=== PATIENT | female | born 1960 | race Caucasian/White ===

== ENCOUNTER 2016-09-13 06:48 | Day surgery (SDC) | payer OTHER ==
[2016-09-13] VITALS (8 sets, daily range): BP systolic 110–164; BP diastolic 61–95; PULSE 77–104; RESP 12–17; O2SAT 97–100
[~2016-09-13] VITALS: Ht 171.4 cm; Wt 57.4 kg
--- NOTE | 2016-09-13 06:41 | PCM.HPANE ---
Patient Data Surgeon Admitting Provider: Attending Provider:David Aldrich MD Primary Care Physician:Veena West Other Provider:Sonal Dukes Anesthesia Reason for Visit Right Distal Radius Fracture Ht/WT & BMI Height (Feet): 5 Height (Inches): 7 Weight (Kilograms): 58.967 Body Mass Index 20.00 Allergies Coded Allergies: hydrocodone (Verified Allergy, Severe, HIVES, 09/10/16) morphine (Verified Allergy, Unknown, UNKNOWN, 09/10/16) oxycodone (Verified Allergy, Unknown, UNKNOWN, 09/10/16) codeine (Verified Adverse Reaction, Severe, NAUSEA, 09/10/16) ketorolac (Verified Adverse Reaction, Severe, anxiety, "crawling inside", 09/13/16) Uncoded Allergies: SULFA (Adverse Reaction, Severe, N&V, 09/10/16) Past Anesthesia History Anesthesia History: Positive for:: Anesthesia Reactions (PONV), Denies:: Malignant Hyperthermia Diabetes History Hx Diabetes?: No MRSA MRSA: No Medications Hypertension Medication: Yes (LISINOPRIL) Reported Medications Ranitidine 150 Mg Drhxzdq129 Mg PO BID Ref 0 09/10/16 Fluticasone Propionate (Flonase Allergy Relief)50 Mcg/Actuation [place].susp9.9 Ml NS DAILY 09/10/16 Trazodone 50 Mg Ubrewt17 Mg PO TID Ref 0 07/02/16 Tramadol 50 Mg Enfjoq01 Mg PO Q4H PRN For Pain Ref 0 07/02/16 Lisinopril 2.5 Mg Tablet2.5 Mg PO DAILY 30 Days Ref 0 07/02/16 Discontinued Reported Medications Hydromorphone 2 Mg Tablet1 Mg PO Q4H PRN Pain Ref 0 09/10/16 Doxycycline Hyclate 50 Mg Tablet.dr50 Mg PO DAILY 09/10/16 [Clotrimazole] No Conflict Check10 Mg PO TID PRN PRN SALVATORE FOR 7 DAYS PRN 09/10/16 Clindamycin Phosphate (Cleocin T)60 Ml Lotion1 Applic TP DAILY 09/10/16 Dicloxacillin 250 Mg Ngycmwc226 Mg PO TID Ref 0 07/02/16 Methocarbamol 750 Mg Htgnxz525 Mg PO BID PRN For Spasm #45 07/06/16 Ibuprofen/Diphenhydramine Cit (Motrin Pm Caplet)1 Each Tablet1 Each PO prn 07/02/16 [Excedrin Migraine] No Conflict Check1 Tab PO DAILY PRN For Pain 07/02/16 History History of ENT Problems?: No Hx of Heart Problems?: Yes Cardiovascular History: Positive for:: Hypertension Denies:: Heart Murmur Hx of Respiratory Problem?: Yes Respiratory History: Denies:: Chest Surgery (HX OF SOLITARY PULMONARY NODULE) Use of C-PAP Machine Hx Neurologic Problems?: Yes Neurological History: Positive for:: Dizziness (HX OF) Headaches Other Neurological Pertinent: C/OF CHRONIC PAIN (BACK) Hx of GI Problems?: Yes Gastrointestinal History: Positive for:: Gastroesphageal Reflux Denies:: Hiatal Hernia Rectal Bleeding (HX OF COLON POLYP) Other GI Pertinent History: S/P HERNIA RPR Hx of Problems?: No Female Hx: Positive for:: Problems with Breasts? (S/P BREAST AUGMENTATION) Denies:: Currently (S/P MULT D&C'S) Skin History: Denies:: History Skin Disorders? Pressure Ulcers Hx Musculoskeletal Problems?: Yes Musculoskeletal History: Positive for:: Back Injury (HX OF BACK INJURY C/OF NECK PAIN) Hx of Psycho/Social Problems?: No Hx Surgeries?: Yes (HERNIA,HYST,LT CLAVICLE BICEPS,C3-4 DISC,MULT D&C'S,LT ACL/ MENISECTOMY,MALIK) Hx Any Other Health Problems?: Yes Other History: Denies:: Cancer Endocrine Disease (C/OF NIGHT SWEATS, HEAT & COLD INTOLERANCE) Hospitalization Thyroid Disease History Blood Transfusions: Denies:: Blood Transfusions Hx Diabetes: No Hx Alcohol Use: NoHx Substance Use: Yes Smoking Status: Never Smoker Have You Smoked inLast 12 mo: No Stop/Bang S-Snoring: Do You Snore Loudly: No T-Tired: feel tired, fatigued: No O-Obsered: Observed not breath: No P-Blood Pressure: treated: Yes B- Body Mass Index > 35 kg/m2: No A- Age over 50: Yes N- Neck Large Circumference: No G- Gender Male: No ROMI Total Score: 2 ROMI Risk Assessment: Low Risk, <3 Yes Risk Assessment Category Category 1A: Patient has history of documented sleep apnea, and HAS NOT received any narcotic, sedative or anesthesia administration during this stay. Category 1B: Patient has history of documented sleep apnea, and HAS received any narcotic , sedative or anesthesia administration during this stay Category 2: Patient has SUSPECTED Obstructive Sleep Apnea, and HAS received any narcotic , sedative or anesthesia administration during this stay. Category 3: Patient has SUSPECTED Obstructive Sleep Apnea and HAS NOT received narcotic, sedative or anesthesia administration during this stay. Category 4: Outpatient in Procedural Areas with known sleep apnea or who screen positive for High Risk via the STOP/BANG questionnaire. Exam Exam General Appearance: Alert, Oriented X3, Cooperative, No Acute Distress HEENT/AIRWAY: MP 2 Lungs: Clear to Auscultation, Normal Air Movement Heart: Exam Unremarkable, Regular Rate/Rhythm, No Murmurs/Rubs/Gallops Plan Impression Patient chart reviewed, patient interviewed and anesthestic plan with risks, benefits, and alternatives discussed, and informed consent obtained. NPO Status: 07/05/16 1700 ASA Physical Status: ASA2 Mod Systemic Disease Anesthetic Plan: GA Bene/Risks/Altern/Consents: Yes HP Complete Prior to Induction: Yes Other history of PONV without prophylaxis. No problems since Dex/Ond combination in hte last 10 years Neck fusion with pain, currently greater than her wrist. Chery Rider MD Sep 13, 2016 06:41
[~2016-09-13 06:48] MED LIST: CLIN60LO TP; CLOTRIMAZOLE PO; CeFAZolin Inj 2 GM in IV Premix 1 EACH IV ONE; DICL250C PO; DOXY50TA9 PO; FLUT9.9S NS; HYDR2TAB28 PO; LISI2.5T PO; Lactated Ringer's 1,000 ML IV ONE; RANI150C4 PO; TRAM50TA2 PO; TRAZ-115 PO
[2016-09-13] MEDS ORDERED: Ondansetron 2 mg/mL 2 mL Inj ONE (06:49)
[2016-09-13] MEDS ORDERED: Dexamethasone 4 mg/mL Inj ONE (06:49)
[2016-09-13] MEDS ORDERED: fentaNYL-PF 50 mCg/mL 2 mL Inj ONE (06:49)
[2016-09-13] MEDS ORDERED: Propofol 10,000 mCg/mL 20 mL Inj ONE (06:49)
[2016-09-13] MEDS ORDERED: Lactated Ringer's 500 ML IV PRN (08:55)
[2016-09-13] MEDS ORDERED: hydrALAZINE 20 mg/mL Inj IVPUSH PRN (08:55)
[2016-09-13] MEDS ORDERED: Lactated Ringer's 1,000 ML IV SCH (08:55)
[2016-09-13] MEDS ORDERED: Ondansetron 2 mg/mL 2 mL Inj IVPUSH PRN (08:55)
[2016-09-13] MEDS ORDERED: Labetalol 5 mg/mL 4 mL Inj IV PRN (08:55)
[2016-09-13] MEDS ORDERED: Atropine 0.4 mg/mL Inj IVPUSH PRN (08:55)
[2016-09-13] MEDS ORDERED: EPHEDrine Sulfate 50 mg/mL Inj IVPUSH PRN (08:55)
[2016-09-13] MEDS ORDERED: Dexamethasone 4 mg/mL Inj IVPUSH PRN (08:55)
[2016-09-13] MEDS ORDERED: Phenylephrine 10,000 mCg/mL Inj IVPUSH PRN (08:55)
[2016-09-13] MEDS ORDERED: MetoCLOpramide 5 mg/mL 2 mL Inj IVPUSH PRN (08:55)
[2016-09-13] MEDS ORDERED: Ropivacaine-PF 0.5% 30 mL Inj INJ ONE (08:59)
[2016-09-13] MEDS ORDERED: Bacitracin 50,000 unit Inj IRRIGATION ONE (09:06)
[2016-09-13] MEDS ORDERED: Ketorolac 15 mg/mL Inj IVPUSH ONE (09:50)
[2016-09-13] MEDS ORDERED: oxyCODONE-Acetamin 5-325 mg Tablet PO PRN (09:50)
--- NOTE | 2016-09-13 09:53 | PCM.ORTHOP ---
Orthopedic Operative Report Date of Service: Sep 13, 2016 Pre Operative Diagnosis Right distal radius fracture Post Operative Diagnosis Same Procedure Right distal radius open reduction internal fixation, intra-articular with 3 fragments Surgeon Surgeon: David Aldrich MD Assistants: Josselin Sawyer Indication for Procedure Right distal radius intra-articular fracture Findings Right distal radius intra-articular fracture with 3 fragments Details of Procedure Findings: comminuted intraarticular fracture of distal radius, fluoroscopic imaging after ORIF shows good alignment of distal radius and no hardware complications Specimens: None Patient Status: Patient was extubated and taken to recovery room in stable condition. Indications: Estrellita Collazo is a 56 year old female right hand dominant with right distal radius fracture after fall on outstretched hand. A clear explanation was given to the patient regarding the condition present, and the available conservative and surgical options. It was emphasized that the risks and benefits of surgery include but are not limited to infection, wound healing problems, damage to adjacent structures such as nerves, blood vessels and tendons, cotton inspector disability and pain, arthritis, hypersensitivity, deep vein thrombosis, pulmonary embolism, broken hardware, failure of surgery, need for further procedures at time of surgery or later, cast related problems, loss of limb or life. The patient was given an explanation and the patient voiced understanding of what to expect after the procedure or surgery, the limitations in activities of daily living, the likely duration for post operative recovery and the instructions that are to be followed. At the end the patient was invited to seek clarification or ask further questions but there were none. The patient voiced understanding of the entire consultation. Description of Procedure: Patient was taken to operating room and transferred to operating table in supine position. Time out was performed with both anesthesia and orthopaedics faculty present to confirm details of case to be performed. After time out performed, patient placed under general anesthesia and endotracheal tube secured into place. Once endotracheal tube secured, proximal arm tourniquet was placed over softroll and secured with tape. Patient position was again checked to ensure all bony prominences adequately padded. [ right/left] arm was prepped and draped in the usual sterile fashion to the level of the tourniquet. The right upper extremity was then exsanguinated with an esmark and the tourniquet was then inflated to 250 mmHG. Incision was made approximately 5 cm long over the course of the flexor carpi radialis (FCR) tendon. Hemostasis was controlled with electrocautery. The flexor carpi radialis tendon sheath was identified. The sheath was then entered with tenotomy scissors and released. The FCR tendon sheath was dissected distally to the level of the superficial radial artery. The FCR tendon was retracted towards the ulna to protect the median nerve. At this time the radial artery was identified and protected and retracted towards the radial side. Incision through the floor of the FCR sheath was performed. The pronator quadratus was identified and released by sharp dissection over the radial and distal edge by making a L incision. A periosteal elevator was used to elevate the pronator quadratus to expose the volar surface of the radius. The fracture site was identified and the distal fragment was released and freed up using a freer elevator. The extent of comminution was appreciated at this time. There was note comminution readily apparent with elevation of the distal fragment. The fracture site was debrided with a rongeur and curette. The fracture was reduced and secured with a K-wire. This was confirmed with fluoroscopy. Once the distal fragments were mobilized the fracture was then reduced by placing the Arthrex volar plate on the radial shaft and securing it distally with 2 K- wires through the plate. After verifying plate alignment and location of the wires close to subchondral bone, the distal row was fixed with smooth pegs. Then using a buttress effect the distal fragments were levered into a reduced position and secured with cortical shaft screws. Fluoroscopy confirmed acceptable reduction. Once the plate placement was appropriate the distal drill holes were drilled and filled with smooth peg locking screws. Proper plate alignment and screw placement was checked once more with fluoroscopy in both the AP and lateral views. Final plate position was confirmed with orthogonal views with fluoroscopy imaging that was saved in PACs. The DRUJ was noted to be stable while performing fluoroscopic exams. Wound was then thoroughly irrigated with NS. The pronator quadratus was reapproximated with 4-0 Vycril suture. Subcutaneous closure completed with 4-0 Vycril suture and skin closure with 3-0 Nylon suture. Sterile dressing was placed on the incision as well as the hand and forearm which was then wrapped with soft roll. A volar resting splint was applied to the [right/left] forearm and wrapped with Adalberto wraps. A shoulder sling was also placed for comfort. Patient was then awoken from anesthesia and extubated, his neurovascular status was intact when checked in PACU. Patient tolerated procedure well and there were no complications. I was present and scrubbed for the entire procedure. BLOCK SORTER SURGEON: During the operation, the services of physician nursing surgical services director were medically indicated and necessary to provide exposure of the operative site for the surgical procedure and to maintain the limb in a proper position to carry out the operation safely and efficiently. Without the qualified plumber's assistant being present, it would have extended the operative procedure and made the procedure technically more difficult to perform. Grafts, Implants: Implants-See Implant Record Complications There were no periprocedural complications identified. Condition Stable Anesthetic Administered: GA Catheters: None Output, Estimated Blood Loss: 5 Blood Admin during surgery: No Surgical Cast or Splint: Short Arm Splint Surgical Specimen Removed: No Specimen sent to Pathology: No copies to: David Aldrich MD, Christopher L MD Sep 13, 2016 09:53
[2016-09-13] MEDS: HYDROmorphone 1 mg/mL Inj IVPUSH PRN ×3 (10:10→11:09)
[2016-09-13] MEDS: fentaNYL-PF 50 mCg/mL 2 mL Inj IVPUSH PRN ×2 (10:10→10:15)
--- NOTE | 2016-09-13 11:13 | PCM.ANEP1 ---
Post Anesthesia Phase 1 PACU Phase 1 Assessment Date of Service: Sep 13, 2016 Vital Signs Vital Signs Date Time Temp Pulse Resp B/P Pulse Ox O2 Delivery O2 Flow Rate FiO2 09/13/16 10:36 87 16 164/73 99 Nasal Cannula 2 09/13/16 10:27 104 17 145/76 99 Nasal Cannula 2 09/13/16 10:03 36.0 77 15 156/90 98 Simple Mask 10 09/13/16 07:15 36.3 81 12 110/61 100 Room Air Anesthetic Administered: GA Level of Alertness: Awake, talking VILLALOBOS's with Equal Strength: Yes Pain: No Nausea or Vomiting: No Oxygen Delivery: Simple Mask Lungs: Clear to Auscultation, Normal Air Movement Chery Rider MD Sep 13, 2016 11:13
--- NOTE | 2016-09-13 11:46 | PCM.ANEP2 ---
Post Anesthesia Evaluation ASA/CMS Post Anesthesia VS in Patient's Normal Range?: Yes Resp Stable; Airway Patent?: Yes CV Function & Hydration Stable: Yes Mental Status Recovered?: Yes Pain control Satisfactory?: Yes N/V Control Satisfactory?: Yes Chery Rider MD Sep 13, 2016 11:46
== END 2016-09-13 23:59 | disposition home or self-care (01) ==
LOC: SAS 06:48
PROVIDERS: ATTEND Orthopaedic Surgery
DX: S52.531A Colles' fracture of right radius, initial encounter for closed fracture (principal); I10 Essential (primary) hypertension
CPT/HCPCS: 25609; 76000; C1713; J0690; J1100; J1170; J2175; J2250; J2405; J2795; J3010; J7120

== ENCOUNTER 2016-10-03 08:44 | Emergency (ER) | payer OTHER ==
[~2016-10-03] VITALS: Ht 171.4 cm; Wt 57.3 kg
[~2016-10-03 08:44] MED LIST changes: -CLIN60LO TP; -CLOTRIMAZOLE PO; -CeFAZolin Inj 2 GM in IV Premix 1 EACH IV ONE; -DICL250C PO; -DOXY50TA9 PO; -HYDR2TAB28 PO; -Lactated Ringer's 1,000 ML IV ONE
[2016-10-03 08:57] VITALS: BP 153/91; PULSE 85; RESP 22; O2SAT 100
--- NOTE | 2016-10-03 09:08 | ED.REPORT ---
HPI-Headache Date of Service Oct 03, 2016 ED Provider: Aravind Pruett MD Patient is a 56 year old female with a history of migraines who presents to the ED complaining of a headache onset 9 hours ago. Associated symptoms include nausea, vomiting, neck pain, and dizziness. She took two doses of "indosterone" but believes she vomited both up. She claims that she has a "disk replacement that slips out" causing her to throw up. She denies fever, numbness, focal weakness, chest pain, or any other symptoms. Family reports that this happens about once a month. At baseline she has tolerable pain but some days are worse than others. She takes 50 mg of tramadol a day for her pain. Patient is requesting narcotics. Nursing Notes Stated Complaint: VOMITING Chief Complaint: Headache Nursing Notes Reviewed: Yes Allergies: Coded Allergies: hydrocodone (Verified Allergy, Severe, HIVES, 09/10/16) morphine (Verified Allergy, Unknown, UNKNOWN, 09/10/16) oxycodone (Verified Allergy, Unknown, UNKNOWN, 09/10/16) codeine (Verified Adverse Reaction, Severe, NAUSEA, 09/10/16) ketorolac (Verified Adverse Reaction, Severe, anxiety, "crawling inside", 09/13/16) Uncoded Allergies: SULFA (Adverse Reaction, Severe, N&V, 09/10/16) Scheduled Fluticasone Propionate (Flonase Allergy Relief) 50 Mcg/Actuation [place].susp 9.9 ML NS DAILY Lisinopril (Lisinopril) 2.5 Mg Tablet 2.5 MG PO DAILY Ranitidine (Ranitidine) 150 Mg Capsule 150 MG PO BID Trazodone (Trazodone) 50 Mg Tablet 50 MG PO TID Scheduled PRN Tramadol (Tramadol) 50 Mg Tablet 50 MG PO Q4H PRN PRN For Pain General Time Seen by MD: 09:07 Chief Complaint Headache Hx Obtained From: Patient, Other family... Arrived By: Walk-in Sudden in Onset?: Yes Onset Occurred: 9 - 12 hours ago Symptom Duration: Since onset Similar Sx Previous: Yes Risk-Headache )( SAH Risk Stratification HypertensionNo Anticoagulation therapy, No Coagulopathy, No Prior SAH RF Statements: Risk factors reviewed )( IC Mass Risk Stratification No HIV, No Malignancy RF Statements: Risk factors reviewed Past Medical History Past Medical History Notes: PCP Dr. Leiva at [facility] Past Medical History Migraines solitary pulmonary nodule Reports: Hypertension, Denies: Cancer, Diabetes mellitus, Stroke Past Surgical History Hernia C3-4 disc replacement 2012 Multiple D&C's L ACL/meniscectomy L clavicle Breast augmentation Reports: Hysterectomy Smoking History Never Smoker Social History Other Social History: Good social support Ambulatory Status Independent Review of Systems Constitutional: Denies: Fever GI: Reports: Nausea, Vomiting Musculoskeletal: Reports: Neck pain Neurologic: Reports: Dizziness, Headache, Denies: Numbness, Weakness Complete sys rev & neg: except as marked. Cardiovascular: Denies: Chest pain Physical Exam Initial Vital Signs Vital Signs (First) Date Time Temp Pulse Resp B/P Pulse Ox O2 Delivery O2 Flow Rate FiO2 10/03/16 08:57 36.0 85 22 153/91 100 Room Air Initial VS: Reviewed Respiratory: No respiratory distress Cardiovascular: Intact distal pulses Extremities: Vascular intact, Neuro intact Skin: Warm, Dry Psychiatric: Mood/affect normal, Behavior normal, Normal thought content General/Constitutional: Awake, Alert, Well developed Head / Eyes: Atraumatic, Normocephalic, PERRL, EOMI Neck: No meningismus Neurologic: Oriented X3, Speech NL, CN II - XII intact Re-Eval/Medical Decision Med Decision/Clinical Course Patient insists that only Dilaudid works to treat her symptoms. Informed patient that we do not use narcotics to treat headaches in the ED. Summary of Info: Medications recently prescribed: Oxycodone #30 09/20/16 Oxycodone #60 09/13/16 Hydromorphone 2 mg #2 09/07/16 130 50 mg Tramadol tablets 08/30/16 Re-Evaluation/Progress #1: Time of Eval: 10:57 )( Patient Status: Condition improved Re-Evaluation/Progress Note: Rechecked patient. She is feeling better. Re-Evaluation/Progress #2: Time of Eval: 11:04 )( Patient Status: Condition improved Re-Evaluation/Progress Note: Rechecked patient. She is feeling much better and her nausea has resolved. She declines further lab testing at this time despite being adamant about getting her potassium levels. Discussed plan for discharge. Patient understands and agrees with plan. All questions addressed at this time. Counseled Regarding: Diagnosis, Need for follow-up, When/why to return to ED Discharge & Departure Impression: Primary Impression: Migraine Migraine type: without aura Status migrainosus presence: without status migrainosus Intractability: not intractable Qualified Code: G43.009 - Migraine without aura, not intractable, without status migrainosus Additional Impression: Cervical pain (neck) Disposition: Home Patient Instructions: Migraine Headache (ED) Additional Instructions: Your symptoms were improved today with the following IV medications: Saline Benadryl Compazine Haloperidol Dexamethasone Oral tramadol And finally IV Tylenol. I am glad you are feeling better now. I recommended he go home and sleep for a few hours. If your symptoms persist, call your doctor tomorrow morning. Referrals: Veena West (PCP) Vladislav Leiva MD Scribe Attestation Portions of this note were transcribed by Jose Manuel Bernal. I, Dr. Pruett personally performed the history, physical exam and medical decision-making; I reviewed and confirmed the accuracy of the information in the transcribed note. Signed by: Jose Manuel Bernal 10/03/2016, 1120 copies to: Vladislav Leiva MD, Kirk H MD Oct 03, 2016 09:08 JOSE MANUEL BERNAL Oct 03, 2016 09:20
[2016-10-03] MEDS ORDERED: 0.9% Sodium Chloride 1,000 ML IV ONE (09:24)
[2016-10-03] MEDS ORDERED: Acetaminophen IV 1,000 MG in IV Premix 1 EACH IV ONE (09:25)
[2016-10-03] MEDS ORDERED: Haloperidol 5 mg/mL Inj IVPUSH ONE (09:25)
[2016-10-03] MEDS ORDERED: Dexamethasone 10 mg/mL Inj IVPUSH ONE (09:25)
[2016-10-03] MEDS ORDERED: MetoCLOpramide 5 mg/mL 2 mL Inj IVPUSH ONE (09:25)
[2016-10-03] MEDS ORDERED: ProchlorPERazine 5 mg/mL 2 mL Inj IVPUSH ONE (09:45)
[2016-10-03 11:40] VITALS: BP 114/68; PULSE 89; RESP 16; O2SAT 99
== END 2016-10-03 11:42 | disposition home or self-care (01) ==
LOC: SED 08:44
DX: G43.009 Migraine without aura, not intractable, without status migrainosus (principal); M54.2 Cervicalgia; I10 Essential (primary) hypertension; Z98.890 Other specified postprocedural states; Z88.5 Allergy status to narcotic agent; Z88.8 Allergy status to other drugs, medicaments and biological substances
CPT/HCPCS: 96361; 96374; 96375; 99284; J0131; J0780; J1100; J1200; J1630; J7030

== ENCOUNTER → 2017-03-29 | Day surgery (SDC) | payer OTHER ==
[~2017-03-29] VITALS: Ht 170.2 cm; Wt 55.0 kg
[~2017-03-29] MED LIST changes: +CeFAZolin Inj 2 GM in IV Premix 1 EACH IV ONE; +Dexamethasone 4 mg/mL Inj IVPUSH PRN; +EPHEDrine Sulfate 50 mg/mL Inj IVPUSH PRN; +HYDROmorphone 1 mg/mL Inj IVPUSH PRN; +IMI100 PO; +Labetalol 5 mg/mL 20 mL Inj IV PRN; +Lactated Ringer's 1,000 ML IV SCH; +Lactated Ringer's 500 ML IV PRN; +Lidocaine PF 1% 30 mL Inj NERVEBLOCK ONE; +MetoCLOpramide 5 mg/mL 2 mL Inj IVPUSH PRN; +Ondansetron 2 mg/mL 2 mL Inj IVPUSH PRN; +Ondansetron 2 mg/mL 2 mL Inj ONE; +Phenylephrine 10,000 mCg/mL Inj IVPUSH PRN; +Propofol 10 mg/mL 20 mL Inj ONE; +TOPI50TA88 PO; -TRAZ-115 PO; +fentaNYL-PF 50 mCg/mL 2 mL Inj IVPUSH PRN; +fentaNYL-PF 50 mCg/mL 2 mL Inj ONE
--- NOTE | 2017-03-29 06:41 | PCM.HPANE ---
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 Ht/WT & BMI Height (Feet): 5 Height (Inches): 7 Weight (Kilograms): 57.6 Body Mass Index 19.00 Allergies Coded Allergies: hydrocodone (Verified Allergy, Severe, HIVES, 03/28/17) Sulfa (Sulfonamide Antibiotics) (Verified Allergy, Unknown, Nausea and vomiting, 03/28/17) ENTERED FROM UNCODED ALLERGIES morphine (Verified Allergy, Unknown, Severe nausea and vomiting, 03/28/17) oxycodone (Verified Allergy, Unknown, Severe nausea and vomiting, 03/28/17) codeine (Verified Adverse Reaction, Severe, NAUSEA, 09/10/16) ketorolac (Verified Adverse Reaction, Severe, anxiety, "crawling inside", 09/13/16) Uncoded Allergies: SULFA (Adverse Reaction, Severe, N&V, 09/10/16) Past Anesthesia History Anesthesia History: Positive for:: Anesthesia Reactions (Violent Nausea and Vomiting), Denies:: Abnormal Airway, Difficult Intubation, Fam Anesthesia Reaction, Fam Malignant Hypertherm, Malignant Hyperthermia Diabetes History Hx Diabetes?: No MRSA MRSA: No Medications Blood Thinner: Aspirin Last Dose Blood Thinner: Mar 28, 2017 Hypertension Medication: Yes (Lisinopril) Home Meds Incl Beta Juju: No Reported Medications Topiramate 50 Mg Elatyq76 Mg PO BID Ref 0 03/28/17 Sumatriptan (Imitrex)100 Mg Nnxbag468 Mg PO 03/28/17 Ranitidine 150 Mg Bhplafg670 Mg PO BID Ref 0 09/10/16 Fluticasone Propionate (Flonase Allergy Relief)50 Mcg/Actuation [place].susp9.9 Ml NS DAILY 09/10/16 Tramadol 50 Mg Rwzkli66 Mg PO Q4H PRN For Pain Ref 0 07/02/16 Lisinopril 2.5 Mg Tablet2.5 Mg PO DAILY 30 Days Ref 0 07/02/16 Discontinued Reported Medications Trazodone 50 Mg Wazdjf90 Mg PO TID Ref 0 07/02/16 History History of ENT Problems?: No HEENT History: Positive for:: Cataracts Hearing Problem Denies:: Abnormal Airway Difficult Intubation Dysphagia Glaucoma Sinus Problem TMJ Denture Type: None Teeth Condition: Within Normal Limits Hx of Heart Problems?: Yes Cardiovascular History: Positive for:: Hypertension Denies:: AICD Heart Murmur Irregular Heartbeat Pacemaker Peripheral Vascular Rheumatic Fever Thrombophlebitis Valvular Heart Disease Hx of Respiratory Problem?: Yes Respiratory History: Denies:: Asthma COPD Chest Surgery (HX OF SOLITARY PULMONARY NODULE) Cough Dyspnea Emphysema Hemoptysis Pneumonia Pulmonary Embolism Tuberculosis Use of C-PAP Machine Use of Inhalers / NEBS Other Resp Pertinent History: Bilateral Pneumothorax 1997 no residual Hx Neurologic Problems?: Yes Neurological History: Positive for:: Dizziness (intermittent) Headaches Denies:: Alzheimer's Disease CVA Dementia Multiple Sclerosis Parkinson's Disease Seizures TIA Hx of GI Problems?: Yes Other GI Pertinent History: history of colon polyps Hx of Problems?: No Genitourinary History: Positive for:: Urinary Tract Infection Denies:: HX of Hemodialysis Kidney Stones HX of Peritoneal Dialysis: No Female Hx: Positive for:: Problems with Breasts? (S/P BREAST AUGMENTATION at age 30) Denies:: Currently (S/P MULT D&C'S) Skin History: Denies:: History Skin Disorders? Pressure Ulcers Hx Musculoskeletal Problems?: Yes Musculoskeletal History: Positive for:: Back Injury (HX OF BACK INJURY C/OF NECK PAIN) Denies:: Degenerative Joint Fibromyalgia Joint Replacement Musculoskeletal Trauma (S/P LT CLAVICLE RPR,BICEPS RPR,LT ACL RECONSTR/ MENISECTOMY) Myasthenia Gravis Osteoarthritis Rheumatoid Arthritis Systemic Lupus Hx of Psycho/Social Problems?: No Hx Surgeries?: Yes (HERNIA,HYST,LT CLAVICLE BICEPS,C3-4 DISC,MULT D&C'S,LT ACL/ MENISECTOMY,MALIK) Hx Any Other Health Problems?: Yes Other History: Denies:: Cancer Endocrine Disease (C/OF NIGHT SWEATS, HEAT & COLD INTOLERANCE) Hospitalization Thyroid Disease History Blood Transfusions: Positive for:: Accept Blood Products? Denies:: Blood Transfusions Hx Diabetes: No Hx Alcohol Use: NoHx Substance Use: Yes (smoke) Smoking Status: Never Smoker Have You Smoked inLast 12 mo: No Stop/Bang S-Snoring: Do You Snore Loudly: No T-Tired: feel tired, fatigued: No O-Obsered: Observed not breath: No P-Blood Pressure: treated: Yes B- Body Mass Index > 35 kg/m2: No A- Age over 50: Yes N- Neck Large Circumference: No G- Gender Male: No ROMI Total Score: 2 ROMI Risk Assessment: Low Risk, <3 Yes Risk Assessment Category Category 1A: Patient has history of documented sleep apnea, and HAS NOT received any narcotic, sedative or anesthesia administration during this stay. Category 1B: Patient has history of documented sleep apnea, and HAS received any narcotic , sedative or anesthesia administration during this stay Category 2: Patient has SUSPECTED Obstructive Sleep Apnea, and HAS received any narcotic , sedative or anesthesia administration during this stay. Category 3: Patient has SUSPECTED Obstructive Sleep Apnea and HAS NOT received narcotic, sedative or anesthesia administration during this stay. Category 4: Outpatient in Procedural Areas with known sleep apnea or who screen positive for High Risk via the STOP/BANG questionnaire. Exam Exam General Appearance: Alert, Oriented X3, Cooperative, No Acute Distress HEENT/AIRWAY: MP 2 Lungs: Clear to Auscultation, Normal Air Movement Heart: Exam Unremarkable, Regular Rate/Rhythm, No Murmurs/Rubs/Gallops Plan Impression Patient chart reviewed, patient interviewed and anesthestic plan with risks, benefits, and alternatives discussed, and informed consent obtained. ASA Physical Status: ASA2 Mod Systemic Disease Anesthetic Plan: MAC Bene/Risks/Altern/Consents: Yes HP Complete Prior to Induction: Yes Other history of N and V after anestheisa. none with last anesthetic by me. Less risk today with mac as d/w pt addtionally, she is today, missing her morning tramadol dose nad claims nausea from that. she will receive ondanstron to combat that as well as propofol sedation. Chery Rider MD Mar 29, 2017 06:41
[2017-03-29] MEDS: Lactated Ringer's 1,000 ML IV SCH ×2 (08:36→09:47)
[2017-03-29 09:04] VITALS: BP 127/80; PULSE 57; RESP 16; O2SAT 100
[2017-03-29 10:55] VITALS: BP 124/77; PULSE 68; RESP 11; O2SAT 100
[2017-03-29 11:01] VITALS: BP 114/73; PULSE 66; RESP 12; O2SAT 100
[2017-03-29 11:05] VITALS: BP 108/69; PULSE 63; RESP 12; O2SAT 96
--- NOTE | 2017-03-29 11:07 | PCM.PODPO ---
Podiatry Operative Report Date of Service: Mar 29, 2017 Date of Service Mar 29, 2017 Pre Operative Diagnosis Left hallux malleus, IP joint subluxation Post Operative Diagnosis Left hallux malleus, IP joint subluxation Procedure Left 1st interphalangeal joint fusion Surgeon Surgeon: Susan Elizalde DPM Assistants: Fareed Doshi [id number] Indication for Procedure Left great toe pain, difficulty wearing shoes. Findings Arthritic change in the interphalangeal joint, reducible deformity the interphalangeal joint fusion. Details of Procedure The patient was identified in the preoperative holding area and brought back to the operating room. She was placed on the operating table in supine position. The timeout protocol was completed in the patient's name and site of surgery identified. IV sedation was initiated and the left great toe anesthetized. The left foot was prepped and draped in usual aseptic manner. A curvilinear incision was made over the interphalangeal joint the left great toe. Small bleeding vessels were cauterized as needed. The extensor tendon was transected at the level of the interphalangeal joint. It was reflected off of the proximal phalangeal head and distal phalangeal base. A small fragment of bone on the lateral aspect of the joint was resected. Using a bone saw, the joint surfaces were resected. 1.1 mm K wire was anterograde drilled through the distal phalanx in the center portion of the phalanx. Using fluoroscopic guidance, it was then retrograde drilled through the proximal phalanx to approximate the IP joint fusion. A cannulated drill bit was used to drill through the distal phalanx and across the fusion site. The distal portion of the tuft was reamed with countersink. The length of the screw was measured and cannulated, partially-threaded, 4.0 mm screw was inserted over the guidewire and confirmed via fluoroscopic guidance. The wound was irrigated with normal saline. The extensor tendon was reapproximated with 4-0 Vicryl, using horizontal and baseball stitch techniques. The skin was closed with 3-0 Prolene. The dressing consisted of Amador silk, saline moistened gauze, Kerlix, and Coban. The patient was weaned off of IV sedation and taken to the recovery room with vital signs stable and the vascular status to the left foot intact. Grafts, Implants: Implants-See Implant Record Complications There were no periprocedural complications identified. Condition Stable Anesthetic Administered: MAC Drains: None Catheters: None Output, Estimated Blood Loss: 10 (ml) Blood Admin during surgery: No Surgical Cast or Splint: Post-op Boot Surgical Specimen Removed: No Specimen sent to Pathology: No Post Operative Plan Weightbearing as tolerated in postop boot. PO pain medication per patient's request was ordered preoperatively. The dressing is to stay clean, dry, and intact until follow up visit next week. Susan Elizalde DPM Mar 29, 2017 11:07
[2017-03-29 11:16] VITALS: BP 101/72; PULSE 69; RESP 16; O2SAT 99
--- NOTE | 2017-03-29 11:36 | PCM.ANEP1 ---
Post Anesthesia PACU Phase 1 Assessment Vital Signs Vital Signs Date Time Temp Pulse Resp B/P Pulse Ox O2 Delivery O2 Flow Rate FiO2 03/29/17 11:16 69 16 101/72 99 Room Air 03/29/17 11:05 63 12 108/69 96 Room Air 03/29/17 11:01 66 12 114/73 100 Room Air 03/29/17 10:55 36.6 68 11 124/77 100 Room Air 03/29/17 09:04 36.0 57 16 127/80 100 Room Air Anesthetic Administered: MAC Level of Alertness: Awake, talking VILLALOBOS's with Equal Strength: Yes Pain: No Nausea or Vomiting: No CV Function & Hydration Stable: Yes Airway Device: Oxygen Delivery: Room Air Lungs: Clear to Auscultation, Normal Air Movement PACU Phase 2 Assessment Complications: No Follow up Care: No Patient Instructions Provided: N/A ([id number]) Chery Rider MD Mar 29, 2017 11:36
== END | disposition home or self-care (01) ==
LOC: SAS 08:26
PROVIDERS: ATTEND Podiatrist
DX: M20.42 Other hammer toe(s) (acquired), left foot (principal); M20.5X2 Other deformities of toe(s) (acquired), left foot; M19.072 Primary osteoarthritis, left ankle and foot; M79.675 Pain in left toe(s); G43.909 Migraine, unspecified, not intractable, without status migrainosus; G89.4 Chronic pain syndrome